=== PATIENT | male | born 1955 | race African-American/Black ===

== ENCOUNTER 2017-09-02 21:10 | Inpatient (IN) | payer BC ==
[~2017-09-02] VITALS: Ht 170.2 cm; Wt 76.7 kg
[~2017-09-02 21:10] MED LIST: KEPPRA
[2017-09-03] MEDS ORDERED: NITROGLYCERIN 0.4MG TABLET SL SL PRN
[2017-09-03] MEDS ORDERED: ASPIRIN 81MG TABLET PO ONE
[2017-09-03 00:08] LABS: BASOPHILS % 0.9 % (0.0-2.0); EOSINOPHILS % 7.1 % (0.0-5.0); HEMATOCRIT. 43.1 % (42.0-52.0); LYMPHOCYTES % 38.5 % (20.0-50.0); MEAN CORPUSCULAR HEMOGLOBIN 26.7 pg (28.0-32.0); MEAN PLATELET VOLUME 8.6 fl (7.4-10.4); MONOCYTES % 8.6 % (2.0-8.0); NEUTROPHILS % 44.9 % (40.0-76.0); PLATELET 217 x1000/uL (130-400); RED BLOOD CELL COUNT 5.26 mill/uL (4.7-6.1); RED CELL DISTRIBUTION WIDTH 14.5 % (11.6-14.6)
[2017-09-03 00:14] LABS: CHLORIDE 104 mEq/L (98-107)
[2017-09-03 00:17] LABS: PARTIAL THROMBOPLASTIN TIME 26.6 sec (23.4-31.0)
[2017-09-03 00:31] LABS: CLARITY URINE CLEAR (CLEAR); COLOR URINE YELLOW (YELLOW); KETONES URINE NEGATIVE (NEGATIVE); LEUKOCYTE ESTERASE URINE NEGATIVE (NEGATIVE); NITRITE URINE NEGATIVE (NEGATIVE); OCCULT BLOOD URINE NEGATIVE (NEGATIVE); PROTEIN URINE NEGATIVE (NEGATIVE); SPECIFIC GRAVITY URINE 1.023 (1.005-1.030); UROBILINOGEN URINE 0.2 E.U./dL (0.2-1.0)
[2017-09-03] MEDS ORDERED: LABETALOL 5MG/ML SYR 20 MG/4 ML SYRINGE IV SCH (00:45)
[2017-09-03] MEDS ORDERED: ENOXAPARIN 80MG/0.8ML SYR SUBCUT SCH (01:00)
[2017-09-03] MEDS ORDERED: ACETAMINOPHEN 325MG TABLET PO PRN (02:45)
[2017-09-03] MEDS ORDERED: ONDANSETRON HCL 4MG/2ML VIAL IV PRN (02:45)
[2017-09-03] MEDS ORDERED: HYDROCODONE/ACETAMINOPHEN 5/325MG TABLET PO PRN (02:45)
[2017-09-03] MEDS ORDERED: MORPHINE SULFATE 4 MG/ML CPJ (NOT FOR IM USE) IV PRN (02:45)
[2017-09-03] MEDS ORDERED: CLONIDINE 0.1MG TABLET PO PRN (02:45)
[2017-09-03 04:00] VITALS: BP 210/119
[2017-09-03] MEDS ORDERED: ONDANSETRON 4MG ODT PO PRN (04:30)
[2017-09-03 05:07] VITALS: BP 210/119
[2017-09-03] MEDS ORDERED: METF10002 MT (05:39)
[2017-09-03] MEDS ORDERED: GLIPI (05:41)
[2017-09-03] MEDS ORDERED: GLIPIZIDE (05:43)
[2017-09-03] MEDS ORDERED: PLAVIX (05:43)
[2017-09-03] MEDS ORDERED: FISH OIL (05:45)
[2017-09-03] MEDS ORDERED: ASPI-986 MT (05:46)
[2017-09-03] MEDS ORDERED: ASPIRIN (05:47)
[2017-09-03 07:34] LABS: CREATINE KINASE 146 IU/L (39-308)
[2017-09-03 08:00] VITALS: BP 156/95
[2017-09-03] MEDS: AMLODIPINE 10MG TABLET PO SCH (08:43)
[2017-09-03] MEDS: METOPROLOL TARTRATE 25MG TABLET PO SCH ×2 (08:44→21:58)
[2017-09-03] MEDS: ASPIRIN 81MG EC TABLET PO SCH (08:44)
[2017-09-03 12:30] VITALS: BP 152/98
[2017-09-03] MEDS: HYDRALAZINE HCL 50MG TABLET PO SCH ×2 (12:51→21:58)
[2017-09-03 15:07] LABS: CREATINE KINASE 137 IU/L (39-308)
[2017-09-03 16:00] VITALS: BP 140/84
[2017-09-03 20:17] VITALS: BP 159/93
[2017-09-04 00:19] VITALS: BP 130/84
[2017-09-04 04:02] VITALS: BP 139/90
[2017-09-04 06:45] LABS: BASOPHILS % 0.6 % (0.0-2.0); EOSINOPHILS % 6.3 % (0.0-5.0); HEMATOCRIT. 44.5 % (42.0-52.0); HEMOGLOBIN. 14.7 g/dL (14.0-18.0); LYMPHOCYTES % 38.9 % (20.0-50.0); MEAN CORPUSCULAR HEMOGLOBIN 26.8 pg (28.0-32.0); MEAN PLATELET VOLUME 8.6 fl (7.4-10.4); MONOCYTES % 7.5 % (2.0-8.0); NEUTROPHILS % 46.7 % (40.0-76.0); PLATELET 226 x1000/uL (130-400); RED BLOOD CELL COUNT 5.49 mill/uL (4.7-6.1); RED CELL DISTRIBUTION WIDTH 14.5 % (11.6-14.6)
[2017-09-04 06:56] LABS: CHLORIDE 105 mEq/L (98-107)
[2017-09-04 07:03] LABS: LDL CHOLESTEROL 96 mg/dL (5-100)
[2017-09-04 07:05] LABS: HDL CHOLESTEROL 30 mg/dL (40-59)
[2017-09-04 08:00] VITALS: BP 144/87
[2017-09-04] MEDS: ASPIRIN 81MG EC TABLET PO SCH (09:05)
[2017-09-04] MEDS: AMLODIPINE 10MG TABLET PO SCH (09:05)
[2017-09-04] MEDS: HYDRALAZINE HCL 50MG TABLET PO SCH (09:05)
[2017-09-04] MEDS: METOPROLOL TARTRATE 25MG TABLET PO SCH (09:05)
[2017-09-04 12:00] VITALS: BP 143/87
[2017-09-04 16:38] VITALS: BP 135/88
[2017-09-04 18:00] VITALS: BP 141/81
== END 2017-09-04 18:30 | disposition home or self-care (01) | DRG 305 ==
LOC: ER 21:10 → 5WST 09-03 00:45 → EDBEDREQ 09-03 00:50 → EDBEDREQTM 09-03 00:50 → SUPCPDRO 09-03 02:42
PROVIDERS: ADMIT Hospitalist; ATTEND Hospitalist
DX: I16.0 Hypertensive urgency (principal); I24.9 Acute ischemic heart disease, unspecified; E11.9 Type 2 diabetes mellitus without complications; I10 Essential (primary) hypertension
CPT/HCPCS: 36415; 71045; 80053; 80061; 81003; 82550; 82962; 83690; 83880; 84484; 85025; 85610; 85730; 93005; 96372; 99285; J1650; J3490

== ENCOUNTER 2022-01-22 18:25 | Emergency (ER) | payer BC ==
[~2022-01-22] VITALS: Ht 175.3 cm; Wt 75.0 kg
[~2022-01-22 18:25] MED LIST changes: +ASPIRIN; +FISH OIL; +GLIPIZIDE; +METF-416 MT; +PLAVIX
[2022-01-22] MEDS ORDERED: FLUORESCEIN SODIUM 1MG/STRIP LEFTEYE ONE (21:15)
[2022-01-22] MEDS ORDERED: TETRACAINE 0.5% OPHTH DROPS 4ML LEFTEYE ONE (21:15)
[2022-01-22] MEDS ORDERED: CIPR2.5D13 LEFTEYE (21:38)
[2022-01-22 21:50] VITALS: BP 137/68
== END 2022-01-22 21:50 | disposition home or self-care (01) ==
LOC: ER 18:25
DX: H10.9 Unspecified conjunctivitis (principal); E11.9 Type 2 diabetes mellitus without complications; I10 Essential (primary) hypertension
CPT/HCPCS: 99283